=== PATIENT | male | born 1935 | race African-American/Black ===

== ENCOUNTER 2017-10-22 16:52 | Emergency (ER) | payer BC, MEDICARE, OTHER ==
[~2017-10-22] VITALS: Ht 170.2 cm; Wt 73.0 kg
[~2017-10-22 16:52] MED LIST: AMI2 PO; ASPI-1079 PO; BRIM15DR2 OP; ENAL20TA PO; METO-385 PO; RIFA300C4 PO; SULF1TAB48 PO; TAMS0.4C31 PO; TRAV5DRO4 OP; VYT1080 GT
[2017-10-22 20:17] VITALS: BP 147/71
== END 2017-10-22 20:45 | disposition home or self-care (01) ==
LOC: ER 16:52
DX: R33.9 Retention of urine, unspecified (principal); I25.2 Old myocardial infarction; Z79.82 Long term (current) use of aspirin
CPT/HCPCS: 51702; 99284; A4315

== ENCOUNTER 2017-11-26 05:39 | Emergency (ER) | payer OTHER ==
[~2017-11-26] VITALS: Ht 170.2 cm; Wt 75.0 kg
[2017-11-26 07:24] LABS: CLARITY URINE TURBID (CLEAR); COLOR URINE YELLOW (YELLOW); KETONES URINE NEGATIVE (NEGATIVE); LEUKOCYTE ESTERASE URINE 3+ (NEGATIVE); NITRITE URINE NEGATIVE (NEGATIVE); OCCULT BLOOD URINE 1+ (NEGATIVE); PH URINE 5.5 (4.5-8.0); PROTEIN URINE TRACE (NEGATIVE); SPECIFIC GRAVITY URINE 1.018 (1.005-1.030)
[2017-11-26 09:17] VITALS: BP 145/72
== END 2017-11-26 09:30 | disposition home or self-care (01) ==
LOC: ER 05:43
DX: N39.0 Urinary tract infection, site not specified (principal); E78.00 Pure hypercholesterolemia, unspecified; N40.1 Benign prostatic hyperplasia with lower urinary tract symptoms; I25.2 Old myocardial infarction; Z79.82 Long term (current) use of aspirin; Z90.49 Acquired absence of other specified parts of digestive tract
CPT/HCPCS: 51702; 81003; 87077; 87086; 87186; 93005; 99285; A4315

== ENCOUNTER 2017-12-09 14:56 | Emergency (ER) | payer OTHER ==
[~2017-12-09] VITALS: Ht 170.2 cm; Wt 75.0 kg
[2017-12-09 19:08] LABS: CLARITY URINE CLOUDY (CLEAR); COLOR URINE YELLOW (YELLOW); KETONES URINE NEGATIVE (NEGATIVE); LEUKOCYTE ESTERASE URINE 3+ (NEGATIVE); NITRITE URINE NEGATIVE (NEGATIVE); OCCULT BLOOD URINE 1+ (NEGATIVE); PH URINE 5.5 (4.5-8.0); PROTEIN URINE NEGATIVE (NEGATIVE); SPECIFIC GRAVITY URINE 1.012 (1.005-1.030); UROBILINOGEN URINE 0.2 E.U./dL (0.2-1.0)
[2017-12-09 21:17] VITALS: BP 121/71
== END 2017-12-09 21:18 | disposition home or self-care (01) ==
LOC: ER 16:22
DX: N40.1 Benign prostatic hyperplasia with lower urinary tract symptoms (principal); R33.8 Other retention of urine; N39.0 Urinary tract infection, site not specified; E78.00 Pure hypercholesterolemia, unspecified; I25.2 Old myocardial infarction; Z79.82 Long term (current) use of aspirin; Z90.49 Acquired absence of other specified parts of digestive tract
CPT/HCPCS: 51702; 81003; 87077; 87086; 87186; 99284

== ENCOUNTER 2019-02-25 21:52 | Inpatient (IN) | payer OTHER ==
[~2019-02-25] VITALS: Ht 170.2 cm; Wt 76.2 kg
[2019-02-25 23:52] LABS: BASOPHILS % 0.3 % (0.0-2.0); EOSINOPHILS % 0.2 % (0.0-5.0); HEMATOCRIT. 40.1 % (42.0-52.0); LYMPHOCYTES % 17.5 % (20.0-50.0); MEAN CORPUSCULAR HEMOGLOBIN 30.7 pg (28.0-32.0); MEAN CORPUSCULAR VOLUME 94.7 fL (80.0-94.0); MEAN PLATELET VOLUME 10.1 fl (7.4-10.4); MONOCYTES % 6.6 % (2.0-8.0); NEUTROPHILS % 75.4 % (40.0-76.0); PLATELET 206 x1000/uL (130-400); RED BLOOD CELL COUNT 4.24 mill/uL (4.7-6.1); RED CELL DISTRIBUTION WIDTH 24.6 % (11.6-14.6)
[2019-02-26] LABS: CHLORIDE 112 mEq/L (98-107)
[2019-02-26 00:16] LABS: CLARITY URINE CLOUDY (CLEAR); COLOR URINE YELLOW (YELLOW); KETONES URINE TRACE (NEGATIVE); LEUKOCYTE ESTERASE URINE 2+ (NEGATIVE); NITRITE URINE POSITIVE (NEGATIVE); OCCULT BLOOD URINE 2+ (NEGATIVE); PROTEIN URINE NEGATIVE (NEGATIVE); SPECIFIC GRAVITY URINE 1.023 (1.005-1.030)
[2019-02-26] MEDS ORDERED: SODIUM CHLORIDE 0.9% 1,000 ML IV ONE (01:01)
[2019-02-26] MEDS ORDERED: CEFTRIAXONE 1 G PREMIX 50 ML IV ONE (01:15)
[2019-02-26 02:13] LABS: PLATELET ESTIMATE NORMAL
[2019-02-26 03:15] VITALS: BP 133/71
[2019-02-26 04:00] VITALS: BP 133/71
[2019-02-26] MEDS ORDERED: FURO40TA5 PO (04:58)
[2019-02-26] MEDS ORDERED: POTA20TA82 PO (04:58)
[2019-02-26] MEDS ORDERED: LEVO150T8 PO (05:00)
[2019-02-26] MEDS ORDERED: ACETAMINOPHEN 325MG TABLET PO PRN (11:30)
[2019-02-26] MEDS ORDERED: DOCUSATE SODIUM 100MG CAPSULE PO PRN (11:30)
[2019-02-26] MEDS ORDERED: DIPHENHYDRAMINE 50MG/ML VIAL IV PRN (11:30)
[2019-02-26] MEDS ORDERED: ACETAMINOPHEN 650MG SUPP PR PRN (11:30)
[2019-02-26] MEDS ORDERED: LORAZEPAM 0.5MG TABLET PO PRN (11:30)
[2019-02-26] MEDS ORDERED: ONDANSETRON HCL 4MG/2ML INJ IV PRN (11:30)
[2019-02-26] MEDS ORDERED: GUAIFENESIN 200MG/10ML SUGAR FREE UDC PO PRN (11:30)
[2019-02-26] MEDS ORDERED: IPRATROPIUM/ALBUTEROL 0.5-3(2.5)MG/3ML NEB INH PRN (11:30)
[2019-02-26] MEDS ORDERED: SODIUM CHLORIDE 0.45% 1,000 ML IV SCH (11:30)
[2019-02-26] MEDS ORDERED: HYDROCODONE/ACETAMINOPHEN 5/325MG TABLET PO PRN (11:30)
[2019-02-26] MEDS ORDERED: CLONIDINE 0.1MG TABLET PO PRN (11:30)
[2019-02-26] MEDS ORDERED: NA PHOS,M-B/NA PHOS,DI-BA ENEMA 118ML PR PRN (16:00)
[2019-02-26] MEDS ORDERED: ENOXAPARIN 30MG/0.3ML SYR SUBCUT SCH (16:00)
[2019-02-26 16:33] LABS: HEMATOCRIT 35.4 % (42.0-52.0); HEMOGLOBIN 11.5 g/dL (14.0-18.0); MEAN CORPUSCULAR HEMOGLOBIN 30.9 pg (28.0-32.0); MEAN CORPUSCULAR VOLUME 95.2 fL (80.0-94.0); PLATELET 172 x1000/uL (130-400); RED BLOOD CELL COUNT 3.72 mill/uL (4.7-6.1); RED CELL DISTRIBUTION WIDTH 24.6 % (11.6-14.6)
[2019-02-26 16:41] LABS: CHLORIDE 115 mEq/L (98-107)
[2019-02-26 17:34] VITALS: BP 116/57
[2019-02-26] MEDS ORDERED: ENOXAPARIN 40MG/0.4ML SYR SUBCUT SCH (18:00)
[2019-02-26] MEDS ORDERED: PIPERACILLIN/TAZ 2.25G PREMIX 50 ML IV SCH (18:00)
== END 2019-02-26 18:15 | disposition home or self-care (01) | DRG 682 ==
LOC: ER 23:36 → 6EST 02-26 02:10 → EDBEDREQ 02-26 02:13 → EDBEDREQTM 02-26 02:13 → ENRESERV 02-26 02:18
PROVIDERS: ADMIT Ophthalmology; ATTEND Ophthalmology
DX: N17.9 Acute kidney failure, unspecified (principal); I50.23 Acute on chronic systolic (congestive) heart failure; N39.0 Urinary tract infection, site not specified; I13.0 Hypertensive heart and chronic kidney disease with heart failure and stage 1 through stage 4 chronic kidney disease, or unspecified chronic kidney disease; R73.9 Hyperglycemia, unspecified; E78.5 Hyperlipidemia, unspecified; E03.9 Hypothyroidism, unspecified; Y73.8 Miscellaneous gastroenterology and urology devices associated with adverse incidents, not elsewhere classified; R33.9 Retention of urine, unspecified; M10.9 Gout, unspecified; D64.9 Anemia, unspecified; T83.098A Other mechanical complication of other urinary catheter, initial encounter; I25.2 Old myocardial infarction; Z79.899 Other long term (current) drug therapy; Y92.89 Other specified places as the place of occurrence of the external cause
CPT/HCPCS: 36415; 71045; 80048; 85027; 87077; 87186; 93005; 96374; 99285; J0696; J2543; J7030; A4315

== ENCOUNTER 2019-08-05 11:30 | Inpatient (IN) | payer OTHER ==
[~2019-08-05] VITALS: Ht 170.2 cm; Wt 73.5 kg
[~2019-08-05 11:30] MED LIST changes: +FURO40TA5 PO; +LEVO150T8 PO; +POTA20TA82 PO
[2019-08-05 12:51] LABS: BASOPHILS % 0.3 % (0.0-2.0); EOSINOPHILS % 0.5 % (0.0-5.0); HEMATOCRIT. 38.8 % (42.0-52.0); HEMOGLOBIN. 12.5 g/dL (14.0-18.0); LYMPHOCYTES % 11.6 % (20.0-50.0); MEAN CORPUSCULAR HEMOGLOBIN 30.4 pg (28.0-32.0); MEAN CORPUSCULAR VOLUME 94.4 fL (80.0-94.0); MEAN PLATELET VOLUME 8.9 fl (7.4-10.4); MONOCYTES % 8.8 % (2.0-8.0); NEUTROPHILS % 78.8 % (40.0-76.0); PLATELET 214 x1000/uL (130-400); RED BLOOD CELL COUNT 4.11 mill/uL (4.7-6.1); RED CELL DISTRIBUTION WIDTH 24.6 % (11.6-14.6)
[2019-08-05 12:52] LABS: CHLORIDE 109 mEq/L (98-107)
[2019-08-05 12:56] LABS: ETHANOL BLOOD < 10 mg/dL
[2019-08-05 12:57] LABS: INR 1.1; PROTHROMBIN TIME 11.5 sec (9.6-11.0)
[2019-08-05 13:17] LABS: PLATELET ESTIMATE NORMAL
[2019-08-05 13:51] LABS: CLARITY URINE CLOUDY (CLEAR); COLOR URINE YELLOW (YELLOW); KETONES URINE TRACE (NEGATIVE); LEUKOCYTE ESTERASE URINE 3+ (NEGATIVE); NITRITE URINE NEGATIVE (NEGATIVE); OCCULT BLOOD URINE 1+ (NEGATIVE); PH URINE 5.5 (4.5-8.0); PROTEIN URINE TRACE (NEGATIVE); SPECIFIC GRAVITY URINE 1.024 (1.005-1.030)
[2019-08-05 14:09] LABS: CANNABINOID URINE SCREEN NEGATIVE (NEGATIVE); PHENCYCLIDINE URINE SCREEN NEGATIVE (NEGATIVE)
[2019-08-05 14:10] LABS: *AMPHETAMINES SCREEN URINE NEGATIVE (NEGATIVE); *BARBITURATES SCREEN URINE NEGATIVE (NEGATIVE)
[2019-08-05 14:11] LABS: METHADONE URINE SCREEN NEGATIVE (NEGATIVE)
[2019-08-05 14:12] LABS: *BENZODIAZEPINES SCREEN URINE NEGATIVE (NEGATIVE)
[2019-08-05 14:13] LABS: *COCAINE SCREEN URINE NEGATIVE (NEGATIVE); OPIATES URINE SCREEN NEGATIVE (NEGATIVE)
[2019-08-05] MEDS ORDERED: ASPIRIN 81MG TABLET PO ONE (14:30)
[2019-08-05] MEDS ORDERED: ENOXAPARIN 60MG/0.6ML SYR SUBCUT ONE (14:30)
[2019-08-05] MEDS ORDERED: ACETAMINOPHEN 325MG TABLET PO PRN (18:30)
[2019-08-05] MEDS ORDERED: DIPHENHYDRAMINE 50MG/ML VIAL IV PRN (18:30)
[2019-08-05] MEDS ORDERED: MAGNESIUM/ALUMINUM HYDROXIDE/SIMETHICONE 30ML UDC PO PRN (18:30)
[2019-08-05] MEDS ORDERED: HYDROCODONE/ACETAMINOPHEN 5/325MG TABLET PO PRN (18:30)
[2019-08-05] MEDS ORDERED: GUAIFENESIN 200MG/10ML SUGAR FREE UDC PO PRN (18:30)
[2019-08-05] MEDS ORDERED: CLONIDINE 0.1MG TABLET PO PRN (18:30)
[2019-08-05] MEDS ORDERED: DOCUSATE SODIUM 100MG CAPSULE PO PRN (18:30)
[2019-08-05] MEDS ORDERED: NA PHOS,M-B/NA PHOS,DI-BA ENEMA 118ML PR PRN (18:30)
[2019-08-05] MEDS ORDERED: ONDANSETRON HCL 4MG/2ML INJ IV PRN (18:30)
[2019-08-05] MEDS ORDERED: ACETAMINOPHEN 650MG SUPP PR PRN (18:30)
[2019-08-05] MEDS ORDERED: IPRATROPIUM/ALBUTEROL 0.5-3(2.5)MG/3ML NEB NEB PRN (18:30)
[2019-08-05] MEDS ORDERED: LORAZEPAM 0.5MG TABLET PO PRN (18:30)
[2019-08-05] MEDS ORDERED: FLUCONAZOLE 100MG TABLET PO NR (21:00)
[2019-08-05] MEDS: CARVEDILOL 3.125 MG TABLET PO SCH (21:40)
[2019-08-05] MEDS: ENOXAPARIN 30MG/0.3ML SYR SUBCUT SCH (21:41)
[2019-08-05] MEDS ORDERED: LEVOFLOXACIN 500MG PREMIX 100 ML IV NR (22:00)
[2019-08-05 22:03] VITALS: BP 110/55
[2019-08-06] VITALS: BP 112/56
[2019-08-06 00:40] LABS: CREATINE KINASE MB FRACTION 1.4 ng/mL (0.5-3.6)
[2019-08-06 04:00] VITALS: BP 100/56
[2019-08-06 05:53] LABS: BASOPHILS % 0.7 % (0.0-2.0); EOSINOPHILS % 1.4 % (0.0-5.0); HEMATOCRIT. 35.6 % (42.0-52.0); HEMOGLOBIN. 11.8 g/dL (14.0-18.0); LYMPHOCYTES % 26.5 % (20.0-50.0); MEAN CORPUSCULAR HEMOGLOBIN 30.6 pg (28.0-32.0); MEAN CORPUSCULAR VOLUME 92.7 fL (80.0-94.0); MEAN PLATELET VOLUME 9.5 fl (7.4-10.4); MONOCYTES % 14.9 % (2.0-8.0); NEUTROPHILS % 56.5 % (40.0-76.0); PLATELET 205 x1000/uL (130-400); RED BLOOD CELL COUNT 3.84 mill/uL (4.7-6.1); RED CELL DISTRIBUTION WIDTH 25.2 % (11.6-14.6)
[2019-08-06 06:27] LABS: CHLORIDE 111 mEq/L (98-107)
[2019-08-06 06:36] LABS: LDL CHOLESTEROL 108 mg/dL (5-100)
[2019-08-06 06:37] LABS: CREATINE KINASE 41 IU/L (39-308); CREATINE KINASE MB FRACTION 1.3 ng/mL (0.5-3.6); HDL CHOLESTEROL 39 mg/dL (40-59)
[2019-08-06 08:00] VITALS: BP 115/65
[2019-08-06] MEDS ORDERED: ASPIRIN 81MG EC TABLET PO SCH (09:00)
[2019-08-06] MEDS: CARVEDILOL 3.125 MG TABLET PO SCH ×2 (09:18→21:23)
[2019-08-06 11:54] VITALS: BP 100/54
[2019-08-06] MEDS ORDERED: LEVOFLOXACIN 250MG PREMIX 50 ML IV SCH (14:00)
[2019-08-06 16:00] VITALS: BP 105/65
[2019-08-06 20:00] VITALS: BP 111/58
[2019-08-06] MEDS ORDERED: ATORVASTATIN CALCIUM 10MG TABLET PO SCH (21:00)
[2019-08-06] MEDS: ENOXAPARIN 30MG/0.3ML SYR SUBCUT SCH (21:24)
[2019-08-07] VITALS: BP 108/61
[2019-08-07 04:00] VITALS: BP 99/55
[2019-08-07 10:11] LABS: CHLORIDE 111 mEq/L (98-107)
[2019-08-07 10:31] LABS: BASOPHILS % 0.6 % (0.0-2.0); EOSINOPHILS % 0.9 % (0.0-5.0); HEMOGLOBIN. 11.7 g/dL (14.0-18.0); LYMPHOCYTES % 21.8 % (20.0-50.0); MEAN CORPUSCULAR HEMOGLOBIN 30.6 pg (28.0-32.0); MEAN CORPUSCULAR VOLUME 93.9 fL (80.0-94.0); MEAN PLATELET VOLUME 9.8 fl (7.4-10.4); MONOCYTES % 12.9 % (2.0-8.0); NEUTROPHILS % 63.8 % (40.0-76.0); PLATELET 212 x1000/uL (130-400); RED BLOOD CELL COUNT 3.83 mill/uL (4.7-6.1); RED CELL DISTRIBUTION WIDTH 25.2 % (11.6-14.6)
== END 2019-08-07 10:35 | disposition left against medical advice (07) | DRG 311 ==
LOC: ER 11:30 → EDBEDREQTM 14:33 → EDBEDREQ 14:33 → SUPCPDRO 18:15 → ENRESERV 19:08 → 7WST 20:40
PROVIDERS: ADMIT Internal Medicine; ATTEND Internal Medicine
DX: I24.9 Acute ischemic heart disease, unspecified (principal); I50.20 Unspecified systolic (congestive) heart failure; N39.0 Urinary tract infection, site not specified; C61 Malignant neoplasm of prostate; D64.9 Anemia, unspecified; E78.5 Hyperlipidemia, unspecified; I11.0 Hypertensive heart disease with heart failure; N13.9 Obstructive and reflux uropathy, unspecified; I25.10 Atherosclerotic heart disease of native coronary artery without angina pectoris; I45.9 Conduction disorder, unspecified; N40.0 Benign prostatic hyperplasia without lower urinary tract symptoms; Z53.29 Procedure and treatment not carried out because of patient's decision for other reasons; I25.2 Old myocardial infarction; Z86.73 Personal history of transient ischemic attack (TIA), and cerebral infarction without residual deficits; Z95.5 Presence of coronary angioplasty implant and graft; Z95.810 Presence of automatic (implantable) cardiac defibrillator; Z87.891 Personal history of nicotine dependence; Z79.899 Other long term (current) drug therapy; Z79.82 Long term (current) use of aspirin
CPT/HCPCS: 36415; 71045; 80048; 80053; 80061; 80305; 80320; 81003; 82550; 82553; 83036; 83880; 84153; 84439; 84443; 84484; 85025; 93005; 93306; 93970; 97162; 99285; J1650; J1956; G0103; G0480

== ENCOUNTER 2019-10-18 19:05 | Inpatient (IN) | payer MEDICARE, OTHER ==
[~2019-10-18] VITALS: Ht 170.2 cm; Wt 75.8 kg
[2019-10-18] MEDS ORDERED: IPRATROPIUM BROMIDE (0.02%) 0.5MG/2.5ML NEB HHN STA (20:16)
[2019-10-18] MEDS ORDERED: METHYLPREDNISOLONE SOD SUCC 125 MG/2 ML VIAL IV STA (20:16)
[2019-10-18] MEDS ORDERED: ALBUTEROL (0.083%) 2.5MG/3ML NEB HHN STA (20:16)
[2019-10-18 20:41] LABS: HEMATOCRIT. 41.3 % (42.0-52.0); HEMOGLOBIN. 13.4 g/dL (14.0-18.0); MEAN CORPUSCULAR HEMOGLOBIN 30.5 pg (28.0-32.0); MEAN CORPUSCULAR VOLUME 94.2 fL (80.0-94.0); MEAN PLATELET VOLUME 9.2 fl (7.4-10.4); PLATELET 219 x1000/uL (130-400); RED BLOOD CELL COUNT 4.39 mill/uL (4.7-6.1); RED CELL DISTRIBUTION WIDTH 24.5 % (11.6-14.6)
[2019-10-18 20:48] LABS: CHLORIDE 107 mEq/L (98-107)
[2019-10-18 21:22] LABS: PLATELET ESTIMATE NORMAL
[2019-10-18] MEDS ORDERED: FUROSEMIDE 40MG/4ML VIAL IV ONE (22:30)
[2019-10-18] MEDS ORDERED: ASPIRIN 81MG TABLET PO ONE (22:30)
[2019-10-19] MEDS ORDERED: ONDANSETRON HCL 4MG/2ML INJ IV PRN (01:00)
[2019-10-19] MEDS ORDERED: DOCUSATE SODIUM 100MG CAPSULE PO PRN (01:00)
[2019-10-19] MEDS ORDERED: IPRATROPIUM/ALBUTEROL 0.5-3(2.5)MG/3ML NEB HHN PRN ×2 (01:00→17:30)
[2019-10-19] MEDS ORDERED: CLONIDINE 0.1MG TABLET PO PRN (01:00)
[2019-10-19] MEDS ORDERED: CARVEDILOL 6.25 MG TABLET PO SCH (02:00)
[2019-10-19] MEDS ORDERED: LEVOFLOXACIN 500MG PREMIX 100 ML IV SCH ×2 (02:00→02:15)
[2019-10-19 05:20] LABS: *AMPHETAMINES SCREEN URINE NEGATIVE (NEGATIVE); *BARBITURATES SCREEN URINE NEGATIVE (NEGATIVE); *BENZODIAZEPINES SCREEN URINE NEGATIVE (NEGATIVE); *COCAINE SCREEN URINE NEGATIVE (NEGATIVE)
[2019-10-19 05:21] LABS: CANNABINOID URINE SCREEN NEGATIVE (NEGATIVE); METHADONE URINE SCREEN NEGATIVE (NEGATIVE); OPIATES URINE SCREEN NEGATIVE (NEGATIVE); PHENCYCLIDINE URINE SCREEN NEGATIVE (NEGATIVE)
[2019-10-19 06:02] LABS: CREATINE KINASE 32 IU/L (39-308); T4 FREE 1.7 ng/dL (0.76-1.46)
[2019-10-19 06:03] LABS: CREATINE KINASE MB FRACTION < 1.0 ng/mL (0.5-3.6)
[2019-10-19] MEDS ORDERED: FUROSEMIDE 40MG/4ML VIAL IV SCH (07:15)
[2019-10-19] MEDS ORDERED: ASPIRIN 81MG EC TABLET PO SCH (09:00)
[2019-10-19] MEDS ORDERED: LISINOPRIL 5MG TABLET PO SCH (09:00)
[2019-10-19 10:00] VITALS: BP 116/61
[2019-10-19] MEDS: ENOXAPARIN 40MG/0.4ML SYR SUBCUT SCH (10:17)
[2019-10-19 11:25] LABS: BG BASE EXCESS -2.4 mmol/L (-2.0-2.0); BG DEOXYHEMOGLOBIN 5.4 % (0.0-5.0); BG FRACTION INSPIRED OXYGEN 21; BG HCO3 ACT 20.7 mmol/L (22.0-26.0); BG METHEMOGLOBIN 0.3 % (0.0-1.5); BG OXYGEN SATURATION 94.5 % (92.0-98.5); BG OXYHEMOGLOBIN 93.3 % (94.0-97.0); BG PCO2 30.8 mmHg (35.0-45.0); BG PH 7.446 (7.350-7.450); BG PO2 75.8 mmHg (75.0-100.0); BG SAMPLE SITE RIGHT RADIAL; BG TOTAL HEMOGLOBIN 12.7 g/dL (12.0-18.0); BG VENT MODE ROOM AIR
[2019-10-19 12:00] VITALS: BP 129/42
[2019-10-19] MEDS ORDERED: ALLO100T MT (12:26)
[2019-10-19] MEDS ORDERED: SACU1TAB7 PO (12:27)
[2019-10-19] MEDS ORDERED: ENOXAPARIN 40MG/0.4ML SYR SUBCUT ONE (14:00)
[2019-10-19 14:45] LABS: CLARITY URINE CLEAR (CLEAR); COLOR URINE YELLOW (YELLOW); KETONES URINE NEGATIVE (NEGATIVE); LEUKOCYTE ESTERASE URINE TRACE (NEGATIVE); NITRITE URINE POSITIVE (NEGATIVE); OCCULT BLOOD URINE NEGATIVE (NEGATIVE); PROTEIN URINE NEGATIVE (NEGATIVE); SPECIFIC GRAVITY URINE 1.018 (1.005-1.030); UROBILINOGEN URINE 0.2 E.U./dL (0.2-1.0)
[2019-10-19 16:00] VITALS: BP 98/59
[2019-10-19 17:21] VITALS: BP 129/42
[2019-10-19] MEDS ORDERED: MORPHINE SULFATE 2 MG/ML CPJ (NOT FOR IM USE) IV PRN (17:30)
[2019-10-19] MEDS ORDERED: LORAZEPAM 2MG/ML CPJ IV PRN (17:30)
[2019-10-19] MEDS ORDERED: GUAIFENESIN 200MG/10ML SUGAR FREE UDC PO PRN (17:30)
[2019-10-19] MEDS ORDERED: BISACODYL 10MG SUPP PR PRN (17:30)
[2019-10-19] MEDS: ASPIRIN 81MG EC TABLET PO SCH (17:46)
[2019-10-19 18:18] LABS: CREATINE KINASE MB FRACTION 1.2 ng/mL (0.5-3.6)
[2019-10-19 20:00] VITALS: BP 98/52
[2019-10-19] MEDS: LEVOFLOXACIN 250MG PREMIX 50 ML IV SCH (21:21)
[2019-10-19] MEDS: SACUBITRIL/VALSARTAN 49MG/51MG TABLET PO SCH (21:21)
[2019-10-20] VITALS (8 sets, daily range): BP systolic 93–108; BP diastolic 50–64
[2019-10-20] MEDS ORDERED: LEVOFLOXACIN 250MG PREMIX 50 ML IV SCH (02:00)
[2019-10-20] MEDS: LEVOTHYROXINE SODIUM 50MCG TABLET PO SCH (06:24)
[2019-10-20] MEDS: ENOXAPARIN 40MG/0.4ML SYR SUBCUT SCH (08:25)
[2019-10-20] MEDS: ASPIRIN 81MG EC TABLET PO SCH ×2 (08:26→18:08)
[2019-10-20] MEDS: AMIODARONE HCL 200 MG TABLET PO SCH (08:27)
[2019-10-20] MEDS: SACUBITRIL/VALSARTAN 49MG/51MG TABLET PO SCH ×2 (09:00→20:31)
[2019-10-20] MEDS ORDERED: ENOXAPARIN 40MG/0.4ML SYR SUBCUT SCH (09:00)
[2019-10-20] MEDS: FUROSEMIDE 40MG TABLET PO SCH (09:00)
[2019-10-20] MEDS: POTASSIUM CHLORIDE 20MEQ/PACKET PO SCH (09:44)
[2019-10-20] MEDS ORDERED: DEXT 5%/0.45% NACL 1000ML 1,000 ML IV ONE (14:15)
[2019-10-20] MEDS: FLUCONAZOLE 200 MG/100ML BAG 100 MG in CONTAINER,EMPTY 0 BAG IV SCH (19:02)
[2019-10-20] MEDS: LEVOFLOXACIN 250MG PREMIX 50 ML IV SCH (20:33)
[2019-10-20 20:44] LABS: BASOPHILS % 0.4 % (0.0-2.0); EOSINOPHILS % 0.7 % (0.0-5.0); HEMATOCRIT. 38.1 % (42.0-52.0); HEMOGLOBIN. 12.3 g/dL (14.0-18.0); LYMPHOCYTES % 12.3 % (20.0-50.0); MEAN CORPUSCULAR HEMOGLOBIN 30.4 pg (28.0-32.0); MEAN CORPUSCULAR VOLUME 94.3 fL (80.0-94.0); MEAN PLATELET VOLUME 9.5 fl (7.4-10.4); MONOCYTES % 11.7 % (2.0-8.0); NEUTROPHILS % 74.9 % (40.0-76.0); PLATELET 238 x1000/uL (130-400); RED BLOOD CELL COUNT 4.05 mill/uL (4.7-6.1); RED CELL DISTRIBUTION WIDTH 25.4 % (11.6-14.6)
[2019-10-20 20:52] LABS: CHLORIDE 109 mEq/L (98-107)
[2019-10-21] VITALS: BP 105/62
[2019-10-21 03:47] VITALS: BP 94/56
[2019-10-21] MEDS: LEVOTHYROXINE SODIUM 50MCG TABLET PO SCH (06:23)
[2019-10-21 07:49] VITALS: BP 111/65
[2019-10-21] MEDS: ASPIRIN 81MG EC TABLET PO SCH ×2 (08:28→16:42)
[2019-10-21] MEDS: AMIODARONE HCL 200 MG TABLET PO SCH ×2 (08:28→16:42)
[2019-10-21] MEDS: FUROSEMIDE 40MG TABLET PO SCH (08:28)
[2019-10-21] MEDS: SACUBITRIL/VALSARTAN 49MG/51MG TABLET PO SCH ×2 (08:28→21:00)
[2019-10-21] MEDS: ENOXAPARIN 40MG/0.4ML SYR SUBCUT SCH (08:28)
[2019-10-21] MEDS: POTASSIUM CHLORIDE 20MEQ/PACKET PO SCH (08:29)
[2019-10-21 12:00] VITALS: BP 105/64
[2019-10-21 16:00] VITALS: BP 106/57
[2019-10-21 16:16] LABS: BASOPHILS % 0.2 % (0.0-2.0); EOSINOPHILS % 0.9 % (0.0-5.0); HEMATOCRIT. 37.8 % (42.0-52.0); HEMOGLOBIN. 12.5 g/dL (14.0-18.0); LYMPHOCYTES % 12.3 % (20.0-50.0); MEAN CORPUSCULAR VOLUME 93.7 fL (80.0-94.0); MEAN PLATELET VOLUME 9.5 fl (7.4-10.4); MONOCYTES % 13.6 % (2.0-8.0); PLATELET 218 x1000/uL (130-400); RED BLOOD CELL COUNT 4.03 mill/uL (4.7-6.1)
[2019-10-21 16:19] LABS: INR 1.2; PROTHROMBIN TIME 12.7 sec (9.6-11.0)
[2019-10-21] MEDS: FLUCONAZOLE 200 MG/100ML BAG 100 MG in CONTAINER,EMPTY 0 BAG IV SCH (16:42)
[2019-10-21 20:00] VITALS: BP 94/55
[2019-10-21] MEDS: CARVEDILOL 3.125 MG TABLET PO SCH (21:00)
[2019-10-21] MEDS: LEVOFLOXACIN 250MG PREMIX 50 ML IV SCH (21:29)
[2019-10-21] MEDS: DEXT 5%/0.45% NACL 1000ML 1,000 ML IV SCH (23:47)
[2019-10-22] VITALS: BP 105/60
[2019-10-22 04:00] VITALS: BP 110/64
[2019-10-22 06:16] LABS: HEMATOCRIT 37.2 % (42.0-52.0); HEMOGLOBIN 12.3 g/dL (14.0-18.0); MEAN CORPUSCULAR VOLUME 93.4 fL (80.0-94.0); PLATELET 217 x1000/uL (130-400); RED BLOOD CELL COUNT 3.98 mill/uL (4.7-6.1); RED CELL DISTRIBUTION WIDTH 25.5 % (11.6-14.6)
[2019-10-22] MEDS: LEVOTHYROXINE SODIUM 50MCG TABLET PO SCH (06:25)
[2019-10-22 06:51] LABS: CHLORIDE 110 mEq/L (98-107)
[2019-10-22 08:00] VITALS: BP 113/65
[2019-10-22] MEDS ORDERED: SODIUM CHLORIDE 0.45% 1,000 ML IV ONE (08:00)
[2019-10-22] MEDS: FUROSEMIDE 40MG TABLET PO SCH (09:00)
[2019-10-22] MEDS: AMIODARONE HCL 200 MG TABLET PO SCH ×2 (09:00→17:00)
[2019-10-22] MEDS: SACUBITRIL/VALSARTAN 49MG/51MG TABLET PO SCH ×2 (09:00→21:03)
[2019-10-22] MEDS: POTASSIUM CHLORIDE 20MEQ/PACKET PO SCH (09:00)
[2019-10-22] MEDS: CARVEDILOL 3.125 MG TABLET PO SCH ×2 (09:00→21:02)
[2019-10-22] MEDS: ASPIRIN 81MG EC TABLET PO SCH ×2 (09:00→17:00)
[2019-10-22 12:00] VITALS: BP 110/65
[2019-10-22] MEDS ORDERED: ASPIRIN/SOD BICARB/CITRIC ACID 324MG TAB EFF ONE (14:05)
[2019-10-22] MEDS ORDERED: MIDAZOLAM HCL 2 MG/2 ML VIAL ONE (14:07)
[2019-10-22] MEDS ORDERED: FENTANYL CITRATE/PF 50MCG/ML 2ML VIAL ONE (14:07)
[2019-10-22] MEDS ORDERED: IODIXANOL 320MG/ML 100 ML BOTTLE IV ONE (14:07)
[2019-10-22] MEDS ORDERED: ONDANSETRON HCL 4MG/2ML INJ IV PRN (15:30)
[2019-10-22] MEDS ORDERED: ACETAMINOPHEN 325MG TABLET PO PRN (15:30)
[2019-10-22] MEDS ORDERED: SODIUM CHLORIDE 0.45% 375 ML IV ONE (15:30)
[2019-10-22] MEDS ORDERED: MORPHINE SULFATE 2 MG/ML CPJ (NOT FOR IM USE) IV PRN (15:30)
[2019-10-22 20:00] VITALS: BP 123/69
[2019-10-22] MEDS: FLUCONAZOLE 200 MG/100ML BAG 100 MG in CONTAINER,EMPTY 0 BAG IV SCH (21:01)
[2019-10-22] MEDS: LEVOFLOXACIN 250MG PREMIX 50 ML IV SCH (21:01)
[2019-10-22] MEDS: DEXT 5%/0.45% NACL 1000ML 1,000 ML IV SCH (23:22)
[2019-10-23] VITALS: BP 125/66
[2019-10-23 04:00] VITALS: BP 100/60
[2019-10-23] MEDS: LEVOTHYROXINE SODIUM 50MCG TABLET PO SCH (06:31)
[2019-10-23 07:41] LABS: BASOPHILS % 0.3 % (0.0-2.0); EOSINOPHILS % 2.3 % (0.0-5.0); HEMOGLOBIN. 12.1 g/dL (14.0-18.0); LYMPHOCYTES % 17.4 % (20.0-50.0); MEAN CORPUSCULAR HEMOGLOBIN 31.3 pg (28.0-32.0); MEAN CORPUSCULAR VOLUME 93.5 fL (80.0-94.0); MEAN PLATELET VOLUME 9.7 fl (7.4-10.4); MONOCYTES % 12.8 % (2.0-8.0); NEUTROPHILS % 67.2 % (40.0-76.0); PLATELET 211 x1000/uL (130-400); RED BLOOD CELL COUNT 3.85 mill/uL (4.7-6.1)
[2019-10-23 08:00] VITALS: BP 100/62
[2019-10-23] MEDS: FUROSEMIDE 40MG TABLET PO SCH (09:52)
[2019-10-23] MEDS: CARVEDILOL 3.125 MG TABLET PO SCH (09:52)
[2019-10-23] MEDS: POTASSIUM CHLORIDE 20MEQ/PACKET PO SCH (09:52)
[2019-10-23] MEDS: AMIODARONE HCL 200 MG TABLET PO SCH (09:52)
[2019-10-23] MEDS: ASPIRIN 81MG EC TABLET PO SCH (09:52)
[2019-10-23] MEDS: SACUBITRIL/VALSARTAN 49MG/51MG TABLET PO SCH (09:55)
[2019-10-23 10:27] LABS: CHLORIDE 111 mEq/L (98-107)
[2019-10-23 12:00] VITALS: BP 102/55
[2019-10-23 16:00] VITALS: BP 101/54
[2019-10-23] MEDS ORDERED: ALBU90AE INH (16:48)
[2019-10-23] MEDS ORDERED: COR3 MT (16:48)
[2019-10-23] MEDS ORDERED: LEVO500T2 PO (16:48)
[2019-10-23 16:59] VITALS: BP 102/55
[2019-10-23] MEDS ORDERED: FLUCONAZOLE 200 MG/100ML BAG 100 MG in CONTAINER,EMPTY 0 BAG IV SCH (18:00)
[2019-10-24] MEDS ORDERED: FLUCONAZOLE 100MG TABLET PO SCH (09:00)
[2019-10-24] MEDS ORDERED: LEVOFLOXACIN 250MG TABLET PO SCH (21:00)
== END 2019-10-23 17:10 | disposition home or self-care (01) | DRG 286 ==
LOC: ER 19:05 → 6WST 23:19 → EDBEDREQTM 23:21 → EDBEDREQ 23:21 → ENRESERV 10-19 08:04
PROVIDERS: ADMIT Ophthalmology; ATTEND Ophthalmology
PROC: 4A023N7 Measurement of Cardiac Sampling and Pressure, Left Heart, Percutaneous Approach (ICD-10-PCS; principal; 2019-10-22)
PROC: B2111ZZ Fluoroscopy of Multiple Coronary Arteries using Low Osmolar Contrast (ICD-10-PCS; 2019-10-22)
PROC: 4A033BC Measurement of Arterial Pressure, Coronary, Percutaneous Approach (ICD-10-PCS; 2019-10-22)
DX: I13.0 Hypertensive heart and chronic kidney disease with heart failure and stage 1 through stage 4 chronic kidney disease, or unspecified chronic kidney disease (principal); I50.23 Acute on chronic systolic (congestive) heart failure; J18.9 Pneumonia, unspecified organism; N17.9 Acute kidney failure, unspecified; I24.9 Acute ischemic heart disease, unspecified; I47.2 Ventricular tachycardia; N39.0 Urinary tract infection, site not specified; I42.9 Cardiomyopathy, unspecified; I25.10 Atherosclerotic heart disease of native coronary artery without angina pectoris; M10.9 Gout, unspecified; C61 Malignant neoplasm of prostate; R73.9 Hyperglycemia, unspecified; E78.00 Pure hypercholesterolemia, unspecified; N18.9 Chronic kidney disease, unspecified; E78.5 Hyperlipidemia, unspecified; I27.20 Pulmonary hypertension, unspecified; Z95.5 Presence of coronary angioplasty implant and graft; Z86.74 Personal history of sudden cardiac arrest; Z95.810 Presence of automatic (implantable) cardiac defibrillator; I25.2 Old myocardial infarction
CPT/HCPCS: 36415; 36600; 71045; 71250; 74176; 78582; 80048; 80053; 80305; 81003; 82375; 82550; 82553; 82805; 83735; 83880; 84153; 84439; 84443; 84484; 84550; 85025; 85027; 85347; 85379; 87804; 93005; 93306; 93970; 94618; 94640; 96365; 97162; 99291; A9558; J1450; J1644; J1650; J1940; J1956; J2250; J2930; J3010; Q9967; G0103